=== PATIENT | female | born 1975 | race Caucasian/White ===

== ENCOUNTER 2021-07-06 05:45 | Day surgery (SDC) | payer BC, SELFPAY ==
[~2021-07-06] VITALS: Ht 160 cm; Wt 65.8 kg
[2021-07-06 06:33] LABS: HCG,QUAL RESULT NEGATIVE (NEGATIVE)
[2021-07-06] MEDS ORDERED: MIDAZOLAM HCL 5 MG/5 ML VIAL IVP ONE (07:47)
[2021-07-06] MEDS ORDERED: LR 1,000 ML IV.SOLN IV ONE (07:47)
[2021-07-06] MEDS ORDERED: KETOROLAC TROMETHAMINE 30 MG VIAL IVP ONE (07:47)
[2021-07-06] MEDS ORDERED: PHENYLEPHRINE HCL 10 MG/ML VIAL (NEOSYNEPHRINE) IV ONE (07:47)
[2021-07-06] MEDS ORDERED: ROCURONIUM BROMIDE 10 MG/ML (ZEMURON) IV ONE (07:47)
[2021-07-06] MEDS ORDERED: CEFAZOLIN 2 GM IVPB PREMIX 50 ML IV ONE (07:47)
[2021-07-06] MEDS ORDERED: DEXAMETHASONE SOD PHOSPHATE 4 MG/ML VIAL IVP ONE (07:47)
[2021-07-06] MEDS ORDERED: BUPIVACAINE /EPINEPHRINE/PF 0.5% 30 ML VIAL INJ ONE (07:47)
[2021-07-06] MEDS ORDERED: HYDROmorphone 2 MG/ML VIAL IVP ONE (07:47)
[2021-07-06] MEDS ORDERED: ETOMIDATE 20 MG/ 10 ML VIAL (AMIDATE) IVP ONE (07:47)
[2021-07-06] MEDS ORDERED: GLYCOPYRROLATE 0.2 MG/ML VIAL IJ ONE (07:47)
[2021-07-06] MEDS ORDERED: SEVOFLURANE 15 MIN GAS INH ONE (07:47)
[2021-07-06] MEDS ORDERED: ONDANSETRON HCL 4 MG/2 ML VIAL IM PRN (09:45)
[2021-07-06] MEDS ORDERED: ONDANSETRON HCL 4 MG/2 ML VIAL IVP PRN ×2 (09:45)
[2021-07-06] MEDS ORDERED: HYDROmorphone 1 MG/ML INJ. CARTRIDGE IVP PRN ×2 (09:45)
[2021-07-06] MEDS ORDERED: IBUPROFEN 800 MG TABLET PO PRN (09:45)
[2021-07-06] MEDS ORDERED: ONDANSETRON HCL 4 MG/2 ML VIAL ONE (11:07)
[2021-07-06 12:58] VITALS: BP_SYST 130
== END 2021-07-06 12:50 | disposition home or self-care (01) ==
LOC: SDS 05:45
PROVIDERS: ATTEND Obstetrics & Gynecology
DX: N83.201 Unspecified ovarian cyst, right side (principal); R10.2 Pelvic and perineal pain; J45.909 Unspecified asthma, uncomplicated; K21.9 Gastro-esophageal reflux disease without esophagitis; Z88.2 Allergy status to sulfonamides; Z20.822 Contact with and (suspected) exposure to COVID-19; Z79.899 Other long term (current) drug therapy
CPT/HCPCS: 36415 ×2; 58661; 84703; 86886 ×2; 86900 ×2; 86901 ×2; 88305; C1727; C1782; J0690; J1100; J1170; J1885; J2250; J2370; J2405; J3490 ×3; J7120; U0003; 88307